=== PATIENT | male | born 1965 | race Caucasian/White ===

== ENCOUNTER 2017-09-29 11:06 | Emergency (ER) | payer BC ==
[2017-09-29 11:36] LABS: ABS Basophils 0 10^3/ul (0-0.2); ABS Eosinophils 0 10^3/ul (0-0.6); ABS Lymphocytes 1.2 10^3/ul (1.0-4.8); ABS Monocytes 0.7 10^3/ul (0-0.8); ABS Neutrophils 5.7 10^3/ul (1.5-7.7); ABS Nucleated RBC 0 10^3/ul; Eosinophil % 0.4 % (0-6); Hematocrit 50 % (42-52); Hemoglobin 16.9 g/dl (14.0-18.0); Lymphocyte % 15.2 % (25-47); Mean Corpuscular HGB Conc 34 g/dl (31-36); Mean Corpuscular Hemoglobin 32 pg (27-31); Mean Corpuscular Volume 95 fL (80-94); Mean Platelet Volume 7.6 um3 (7.4-10.4); Nucleated Red Blood Cells % 0.1; Platelet Count 190 10^3/ul (150-450); Red Blood Count 5.24 10^6/ul (4.00-5.40); Red Cell Distribution Width 15 % (10.5-15); White Blood Count 7.6 10^3/ul (3.5-10.8)
[2017-09-29] MEDS ORDERED: ALPRAZolam TAB* 0.5 MG PO ONE (11:36)
[2017-09-29 11:54] LABS: EGFR Non-African American 66.6 (>60)
--- NOTE | 2017-09-29 12:39 | RAD ---
Indication: Chest pain. Single frontal view of the chest performed at 1144 hours was reviewed. No prior study is available for comparison. No mediastinal shift is noted. Heart is of normal size and configuration. Lung juarez appear clear. IMPRESSION: NO ACTIVE CARDIOPULMONARY DISEASE IS NOTED.
[2017-09-29 14:24] VITALS: BP 133/95
--- NOTE | 2017-10-03 14:49 | ED ---
Tod Evans Jacob, scribed for Hua Moser MD on 09/29/17 at 1304 . HPI Cardiac - HPI Summary HPI Summary: Pt is a 51 y/o M w/ c/o high blood pressure. Pt took BP himself at around 1000 and reports it as 150/105. Per triage, pt denies pain. He reports light- headedness, some dizziness, and palpitations characterized as fluttering, but denies chest pain or tightness. Pt notes that he has a Hx of anxiety for which he takes Xanax along with, "multiple medications". Symptoms of a typical anxiety attack for the Pt are dizziness and "lightness in chest". He had a [employer] drink today, does not drink alcohol, and has had no recent illnesses nor medication changes. Pt reports a recent EKG. - History of Current Complaint Chief Complaint: EDDysrhythmPalp Stated Complaint: ELEVATED HR/ FLUTTER Time Seen by Provider: 09/29/17 11:18 Hx Obtained From: Patient Onset/Duration: Started Hours Ago, Still Present Time of Onset: 10:00 Current Severity: None Pain Intensity: 0 Pain Scale Used: 0-10 Numeric - 0/10 Aggravating Factor(s): Nothing Alleviating Factor(s): Nothing Associated Signs and Symptoms: Positive: Dizziness, Lightheadedness, Other: - NEGATIVE: chest tightness POSITIVE: palpations characterized as fluttering. Negative: Chest Pain - Allergy/Home Medications Allergies/Adverse Reactions: Allergies Allergy/AdvReac Type Severity Reaction Status Date / Time morphine Allergy GI Upset Verified 09/29/17 12:38 Home Medications: Home Medications ALPRAZolam TAB* [Xanax TAB*] 0.5 mg PO QPM PRN 09/29/17 [History Confirmed 09/29] Donepezil TAB* [Aricept 5 MG TAB*] 10 mg PO QPM 09/29/17 [History Confirmed ] Mirtazapine TAB* [Remeron TAB*] 45 mg PO BEDTIME 09/29/17 [History Confirmed ] Modafinil TAB* [Provigil TAB*] 100 mg PO QAM 09/29/17 [History Confirmed ] QUEtiapine XR TAB* [Seroquel Xr 300 MG TAB*] 900 mg PO BEDTIME 09/29/17 [ History Confirmed 09/29/17] Venlafaxine EXT RELEASE CAP* [Effexor Xr CAP*] 150 mg PO QAM 09/29/17 [History Confirmed 09/29/17] Zolpidem CR (NF) [Ambien CR (NF)] 12.5 mg PO BEDTIME PRN 09/29/17 [History Confirmed 09/29/17] PMH/Surg Hx/FS Hx/Imm Hx Sensory History: Denies: Hx Legally Blind Psychiatric History: Reports: Hx Anxiety - Immunization History Immunizations Up to Date: Yes Infectious Disease History: No Infectious Disease History: Denies: Traveled Outside the [place] in Last 30 Days - Family History Known Family History: Negative: Blood Disorder - Social History Alcohol Use: None Substance Use Type: Reports: None Smoking Status (MU): Former Smoker Review of Systems Negative: Fever, Chills Negative: Erythema Negative: Sore Throat Positive: Palpitations - chest palpitations characterized as fluttering, Other - NEGATIVE: chest tightness. Negative: Chest Pain Negative: Shortness Of Breath, Cough Negative: Abdominal Pain, Vomiting, Nausea Negative: dysuria, hematuria Negative: Myalgia, Edema Negative: Rash Neurological: Other - POSITIVE: Dizziness, light-headedness All Other Systems Reviewed And Are Negative: Yes Physical Exam - Summary Physical Exam Summary: Constitutional: Well-developed, Well-nourished, Alert. (+) Anxious-appearing Skin: Warm, Dry HENT: Normocephalic; Atraumatic Eyes: Conjunctiva normal Neck: Musculoskeletal ROM normal neck. (-) JVD, (-) Stridor, (-) Tracheal deviation Cardio: Rhythm regular, rate normal, Heart sounds normal; Intact distal pulses; The pedal pulses are 2+ and symmetric. Radial pulses are 2+ and symmetric. (-) Murmur Pulmonary/Chest wall: Effort normal. (-) Respiratory distress, (-) Wheezes, (-) Rales Abd: Soft, (-), epigastric tenderness, (-) Distension, (-) Guarding, (-) Rebound Musculoskeletal: (-) Edema Lymph: (-) Cervical adenopathy Neuro: Alert, Oriented x3 Psych: Mood and affect Normal Triage Information Reviewed: Yes Vital Signs On Initial Exam: Initial Vitals Temp Pulse Resp BP Pulse Ox 98.8 F 113 20 176/111 93 09/29/17 11:09 09/29/17 11:09 09/29/17 11:09 09/29/17 11:09 09/29/17 11:09 Vital Signs Reviewed: Yes Diagnostics - Vital Signs Vital Signs Temp Pulse Resp BP Pulse Ox 09/29/17 12:21 18 09/29/17 11:09 98.8 F 113 20 176/111 93 - Laboratory Lab Results: Lab Results 09/29/17 09/29/17 09/29/17 Range/Units 11:24 11:24 11:24 WBC 7.6 (3.5-10.8) 10^3/ul RBC 5.24 (4.00-5.40) 10^6/ul Hgb 16.9 (14.0-18.0) g/dl Hct 50 (42-52) % MCV 95 H (80-94) fL MCH 32 H (27-31) pg MCHC 34 (31-36) g/dl RDW 15 (10.5-15) % Plt Count 190 (150-450) 10^3/ul MPV 7.6 (7.4-10.4) um3 Neut % (Auto) 74.4 (38-83) % Lymph % (Auto) 15.2 L (25-47) % Tripp % (Auto) 9.4 H (0-7) % Eos % (Auto) 0.4 (0-6) % Baso % (Auto) 0.6 (0-2) % Absolute Neuts (auto) 5.7 (1.5-7.7) 10^3/ul Absolute Lymphs (auto) 1.2 (1.0-4.8) 10^3/ul Absolute Monos (auto) 0.7 (0-0.8) 10^3/ul Absolute Eos (auto) 0 (0-0.6) 10^3/ul Absolute Basos (auto) 0 (0-0.2) 10^3/ul Absolute Nucleated RBC 0 10^3/ul Nucleated RBC % 0.1 Sodium 137 (135-145) mmol/L Potassium 4.0 (3.5-5.0) mmol/L Chloride 101 (101-111) mmol/L Carbon Dioxide 29 (22-32) mmol/L Anion Gap 7 (2-11) mmol/L BUN 11 (6-24) mg/dL Creatinine 1.16 (0.67-1.17) mg/dL Est GFR ( Amer) 80.6 (>60) Est GFR (Non-Af Amer) 66.6 (>60) BUN/Creatinine Ratio 9.5 (8-20) Glucose 86 (70-100) mg/dL Lactic Acid 1.0 (0.5-2.0) mmol/L Calcium 9.6 (8.6-10.3) mg/dL Total Bilirubin 0.50 (0.2-1.0) mg/dL AST 49 H (13-39) U/L ALT 61 H (7-52) U/L Alkaline Phosphatase 40 (34-104) U/L Troponin I 0.01 (<0.04) ng/mL Total Protein 7.1 (6.4-8.9) g/dL Albumin 4.0 (3.2-5.2) g/dL Globulin 3.1 (2-4) g/dL Albumin/Globulin Ratio 1.3 (1-3) TSH 1.50 (0.34-5.60) mcIU/mL Free T4 0.80 (0.61-1.12) ng/dL Result Diagrams: 09/29/17 11:24 09/29/17 11:24 Lab Statement: Any lab studies that have been ordered have been reviewed, and results considered in the medical decision making process. - Radiology CXR Xray Interpretation: No Acute Changes Radiology Interpretation Completed By: Radiologist - No active cardiopulmonary disease is noted. This report was reviewed by ED physician. - EKG 1121 Cardiac Rate: Tachycardia - Rate of 105 BPM EKG Rhythm: Sinus Tachycardia EKG Interpretation: no STEMI Re-Evaluation - Re-Evaluation First Eval Re-Evaluation Time: 14:10 Change: Improved Comment: Pt is feeling better after taking Xanax Disposition - Course Assessment/Plan: Pt is a 51 y/o M w/ c/o high blood pressure. Pt took BP himself at around 1000 and reports it as 150/105. Per triage, pt denies pain. He reports light-headedness, some dizziness, and palpitations characterized as fluttering but denies chest pain or tightness. Pt notes that he has a Hx of anxiety for which he takes Xanax along with, "multiple medications". During ED course, Xanax 0.5 mg was provided, which improved symptoms. EKG and CXR were done. CXR and EKG were normal. Pt was diagnosed w/ anxiety and discharged to home. - Diagnoses Provider Diagnoses: Anxiety Discharge - Sign-Out/Discharge Documenting (check all that apply): Discharge/Admit/Transfer - discharge - Discharge Plan Condition: Stable Disposition: HOME Patient Education Materials: Anxiety (ED) Forms: *Work Release Referrals: Adam HUBBARD,Marcos Page [Primary Care Provider] - 2 Days Additional Instructions: RETURN TO THE EMERGENCY DEPARTMENT FOR CHANGING OR WORSENING SYMPTOMS The documentation as recorded by the Tod ochoa Jacob accurately reflects the service I personally performed and the decisions made by , Hua Moser MD.
== END 2017-09-29 14:22 | disposition home or self-care (01) ==
LOC: ED 11:06
DX: F41.9 Anxiety disorder, unspecified (principal); Z87.891 Personal history of nicotine dependence
CPT/HCPCS: 36415; 71045; 80053; 83605; 84439; 84443; 84484; 85025; 93005; 99282; A9270-GY